=== PATIENT | female | born 1990 ===

== ENCOUNTER 2017-04-03 23:28 | Inpatient (IN) ==
[2017-04-03] MEDS ORDERED: LACTATED RINGERS 1,000 ML IV SCH (23:45)
[2017-04-03] MEDS ORDERED: ONDANSETRON 4 MG/2 ML VIAL IV PRN (23:53)
[2017-04-03] MEDS ORDERED: MEPERIDINE 50 MG/1 ML VIAL IV PRN (23:53)
[2017-04-03] MEDS ORDERED: LACTATED RINGERS 500 ML IV PRN (23:53)
[2017-04-04 00:33] LABS: Basophils % 0.2 % (0.0-0.8); Eosinophils # 0.2 10*3/uL (0.0-0.87); Eosinophils % 1.5 % (0.00-10.9); Hematocrit 29.4 VOL% (35.7-47.0); Hemoglobin 9.9 GM/DL (12.0-16.0); Immature Granulocytes % 0.9 %; Immature Granulocytes Absolute 0.11 #; Lymphocytes # 3.4 10*3/uL (1.4-4.0); Lymphocytes % 26.5 % (21.3-54.2); Mean Corpuscular HGB Conc 33.7 GM/DL (32-36); Mean Corpuscular Hemoglobin 31 PG (27-34); Mean Corpuscular Volume 92.2 FL (87-102); Mean Platelet Volume 9.8 FL (9.6-12.0); Monocytes % 7.6 % (1.7-12.7); Neutrophils # 8.1 10*3/uL (1.4-7.4); Neutrophils % 63.3 % (38.7-73.9); Platelet Count 431 T/CUMM (130-400); Red Blood Count 3.19 MC/CUMM (3.8-5.5); Red Cell Distribution Width 12.8 % (9.3-17.3); White Blood Count 12.9 T/CUMM (4-12)
[2017-04-04] MEDS ORDERED: AMPICILLIN INJ 2,000 MG in SODIUM CHLORIDE 0.9% 100 ML IV ONE (01:31)
[2017-04-04] MEDS ORDERED: SODIUM CHLORIDE 0.9% 100 ML IV ONE (01:33)
[2017-04-04] MEDS ORDERED: AMPICILLIN 2,000 MG VIAL ONE (01:33)
[2017-04-04] MEDS ORDERED: CITRIC ACID/SODIUM CITRATE 30 ML UDCUP PO ONE (02:49)
[2017-04-04] MEDS ORDERED: ePHEDrine 50 MG/ML AMP IV PRN (02:49)
[2017-04-04] MEDS ORDERED: FAMOTIDINE 20 MG/2 ML VIAL IV ONE (02:49)
[2017-04-04] MEDS ORDERED: fentaNYL 2 MCG/ROPIV 0.2% EPID 150 ML EPIDURAL SCH (02:50)
[2017-04-04] MEDS ORDERED: METHYLERGONOVINE 0.2 MG/1 ML AMP ONE (03:20)
[2017-04-04] MEDS ORDERED: OXYTOCIN/LR 20 UNIT/1,000 ML BAG IV ONE ×2 (03:20→04:32)
[2017-04-04] MEDS ORDERED: miSOPROStol 200 MCG TABLET ONE (03:20)
[2017-04-04] MEDS ORDERED: LIDOCAINE 1% 50 ML VIAL ONE (03:20)
[2017-04-04] MEDS ORDERED: BUTORPHANOL 1 MG/ML VIAL ONE (03:35)
[2017-04-04 03:47] LABS: Cord Arterial Blood HCO3 25.6 MMOL/L
[2017-04-04 03:49] LABS: Cord Venous Blood PCO2 32.2 MMHG; Cord Venous Blood PO2 23.2
--- NOTE | 2017-04-04 04:20 | OB/GYN History & Physical ---
History of Present Illness Chief complaint: Active labor, spontaneous rupture membranes History of present illness: Ms. Benavidez is a 26 year old female 3 para 2 EDC is 04/21/2017, estimated gestational age is 37 weeks and 3 days presenting with spontaneous rupture membranes and in active labor. Cervix on admission was 2 cm 50% and -4 station. Patient progressed and subsequently attempt to obtain an epidural anesthetic was unsuccessful. heart tones are category 1, contractions were every 2-3 minutes apart. Home Medications Medication Instructions Recorded Confirmed Type Multivitamin () [ 1 tablet PO DAILY 04/04/17 04/04/17 History Vitamin] Allergies Allergy/AdvReac Type Severity Reaction Status Date / Time No Known Allergies Allergy Verified 04/03/17 23:52 Medical,Surgical,& Family Hx - Medical History Hematology: History of: Anemia Other: History of: Miscellaneous Medical Problems (H/O Chlamydia, trichomonas) - Family History Family History: Reports;: Family Cancer (MGM-THYROID), Family Diabetes (mgm) Denies;: Family Anesthesia Reaction, Family Heart Disease, Family Hematology , Family Hypertension, Family Stroke - Social History Smoking Status: Never smoker Frequency of Alcohol Use: None Type of Drug Use: None 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 Vitals: Vital Signs Temp Pulse Resp BP Pulse Ox 04/04/17 00:00 98.1 F 107 H 20 115/69 100 General appearance: mild distress - Antepartum / Post Antepartum Exam Cervix -Dilatation: On admission 2, 50% ,-4 station, spontaneous rupture membranes - Head Head exam: Present: normal inspection - Eye Eye exam: Present: EOMI Pupils: Present: PRINCE - ENT ENT exam: Present: normal exam - Neck Neck exam: Present: normal inspection - Respiratory Respiratory exam: Present: clear to auscultation bilaterally - Breast Breasts: as per HPI Menstruation: as per HPI - Cardiovascular Cardiovascular exam: Present: regular rate and rhythm - GI/Abdominal GI/Abdominal exam: Present: normal bowel sounds - Extremities Exam Extremities exam: Present: normal inspection - Back Exam Back exam: Present: normal inspection - Neurological Exam Neurological exam: Present: alert, oriented X3 - Psychiatric Psychiatric exam: Present: normal affect - Skin Skin exam: Present: normal color Assessment and Plan (1) Active labor Status: Acute Assessment and plan: 37+ weeks gestation presents in active labor with spontaneous rupture membranes , anticipate Current Visit: Yes Results - Labs CBC & BMP: 04/04/17 00:00
--- NOTE | 2017-04-04 04:25 | Event Note ---
Delivery note Stage I of labor Patient presented with ruptured membranes clear fluid Admission to the hospital is 2325, 2 cm dilated 50% -4 station Completely dilated at 3:15 AM heart tones are category 1 Patient received IV Demerol approximately at 2 AM Stage II Delivery at approximately 329 as I was walking to the door. Cord was doubly clamped nuchal cord 2 loose Cord blood and cord gas was obtained nursery was present at the time of delivery Apgars were 8 at 1 minute 9 at 5 minutes weight was 6 pounds and 8 hours Female Stage III Spontaneous delivery of placenta Estimated blood loss 300 cc No lacerations were noted 3 cord vessels were noted Mother stable Mother received an additional 50 mg IV of Demerol, and also IV Stadol 1 mg.
[2017-04-04] MEDS ORDERED: DIPH/TET/ACEL PERT BOOSTER VACCINE 0.5 ML VIAL IM ONE (04:32)
[2017-04-04] MEDS ORDERED: MEASLES/MUMPS/RUBELLA VACCINE 0.5 ML VIAL SUBCUT ONE (04:32)
[2017-04-04] MEDS ORDERED: ACETAMINOPHEN 325 MG TABLET PO PRN (04:32)
[2017-04-04] MEDS ORDERED: HYDROCORTISONE 2.5% RECTAL CREAM 30 GM TUBE TOP PRN (04:32)
[2017-04-04] MEDS ORDERED: RHO(D) IMMUNE GLOBULIN 300 MCG SYRINGE IM ONE (04:32)
[2017-04-04] MEDS ORDERED: LANOLIN 50% CREAM 0.3 OZ TUBE TOP PRN (04:32)
[2017-04-04] MEDS ORDERED: WITCH HAZEL PADS 100/JAR TOP PRN (04:32)
[2017-04-04] MEDS ORDERED: BISACODYL 10 MG SUPP RECTAL PRN (04:32)
[2017-04-04] MEDS ORDERED: ONDANSETRON 4 MG/2 ML VIAL IV PRN (04:32)
[2017-04-04] MEDS ORDERED: BENZOCAINE 20%/MENTHOL 0.5% SPRAY 56 GM CAN TOP PRN (04:32)
[2017-04-04] MEDS ORDERED: oxyCODONE/ACETAMINOPHEN 5-325 MG TABLET PO PRN (04:32)
[2017-04-04] MEDS ORDERED: AMPICILLIN INJ 1,000 MG in SODIUM CHLORIDE 0.9% 100 ML IV SCH (05:30)
--- NOTE | 2017-04-04 08:53 | Ultrasound Report ---
US OB limited Indication: presentation Comparison: None Technique: Multiple longitudinal and transverse sonographic images of the maternal abdomen/pelvis were obtained with transabdominal probe for limited OB evaluation. Findings: Single live intrauterine demonstrated. presentation cephalic. Placenta location fundal. BILL 8.9 cm. heart rate 141 bpm. IMPRESSION: As above. PROCEDURE INTERPRETED AT [facility] DEPARTMENT OF RADIOLOGY Final Report Signed by: Dr Zoltan Chen
[2017-04-04] MEDS: DOCUSATE SODIUM 100 MG CAPSULE PO SCH ×2 (10:15→21:20)
[2017-04-04] MEDS: IBUPROFEN 800 MG TABLET PO PRN ×3 (10:18→22:55)
--- NOTE | 2017-04-04 10:45 | OB/GYN Progress Note ---
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 - Constitutional Vitals: Vital Signs Temp Pulse Resp BP Pulse Ox 04/04/17 09:00 97.3 F L 74 20 105/53 96 04/04/17 08:00 98.2 F 75 18 111/69 100 04/04/17 04:00 97.9 F 87 16 113/57 04/04/17 00:00 98.1 F 107 H 20 115/69 100 General appearance: no acute distress - Antepartum / Post Post Exam Breast: bilateral: normal Abdomen obstetrics: Present: bowel sounds normal Vagina: Present: normal moisture, discharge Uterus exam: Present: enlarged Anus/Rectum: Present: normal perianal skin Antepartum Exam Breast: bilateral: normal Abdomen obstetrics: Present: bowel sounds normal Vagina: Present: normal moisture, discharge (Moderate lochia rubra) Uterus exam: Present: enlarged (Fundus firm and midline) Anus/Rectum: Present: normal perianal skin - Respiratory Respiratory exam: Present: clear to auscultation bilaterally - Cardiovascular Cardiovascular exam: Present: regular rate and rhythm - GI/Abdominal GI/Abdominal exam: Present: normal bowel sounds - Extremities Exam Extremities exam: Present: normal inspection - Neurological Exam Neurological exam: Present: alert, oriented X3 - Psychiatric Psychiatric exam: Present: normal affect, normal mood - Skin Skin exam: Present: normal color, warm Results - Labs CBC & BMP: 04/04/17 00:00
[2017-04-04] MEDS: oxyCODONE/ACETAMINOPHEN 5-325 MG TABLET PO PRN ×2 (17:24→21:22)
[2017-04-05] MEDS: oxyCODONE/ACETAMINOPHEN 5-325 MG TABLET PO PRN (02:33)
[2017-04-05 06:44] LABS: Basophils % 0.2 % (0.0-0.8); Eosinophils # 0.3 10*3/uL (0.0-0.87); Hematocrit 26.5 VOL% (35.7-47.0); Hemoglobin 8.8 GM/DL (12.0-16.0); Immature Granulocytes % 0.9 %; Immature Granulocytes Absolute 0.11 #; Lymphocytes # 4.2 10*3/uL (1.4-4.0); Lymphocytes % 32.7 % (21.3-54.2); Mean Corpuscular HGB Conc 33.2 GM/DL (32-36); Mean Corpuscular Hemoglobin 31 PG (27-34); Mean Platelet Volume 9.6 FL (9.6-12.0); Monocytes # 0.8 10*3/uL (0.11-0.8); Monocytes % 5.9 % (1.7-12.7); Neutrophils # 7.5 10*3/uL (1.4-7.4); Neutrophils % 58.3 % (38.7-73.9); Platelet Count 321 T/CUMM (130-400); Red Blood Count 2.82 MC/CUMM (3.8-5.5); Red Cell Distribution Width 12.8 % (9.3-17.3); White Blood Count 12.9 T/CUMM (4-12)
[2017-04-05] MEDS: DOCUSATE SODIUM 100 MG CAPSULE PO SCH (08:58)
[2017-04-05 11:48] VITALS: BP 94/55
--- NOTE | 2017-04-05 14:00 | Progress Note ---
Assessment and Plan (1) Active labor Status: Acute Assessment and plan: 37+ weeks gestation presents in active labor with spontaneous rupture membranes , anticipate Current Visit: Yes Family Medicine PN Sub Interval history: Status post vaginal Patient without any major complaints Uterus is firm and nontender Extremities well within normal limits and neurologic grossly intact Assessment and plan Possible discharge in a.m. Exam (Progress Note) - Constitutional Vitals: Period Temp Pulse Resp BP Sys/Ferrara Pulse Ox Last 24 Hr 97.1 F-97.5 F 63-81 18-20 94-104/55-67 96-98 Results - Labs CBC & BMP: 04/05/17 06:33 Quality Measures - VTE Contraindication to Pharmacological VTE Prophylaxis: Clinical assessment deems Pt at low risk, no prophalaxis needed Specialty Discharge - Follow Up or Referrals Follow up with: Janice Cortes MD [Primary Care Provider] - 05/23/17 2:00 pm
--- NOTE | 2017-04-05 14:04 | Discharge Summary ---
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 Diagnosis - Discharge Diagnosis (1) Active labor Status: Acute Specialty Discharge - Follow Up or Referrals Follow up with: Janice Cortes MD [Primary Care Provider] - 05/23/17 2:00 pm Discharge Plan - Discharge Data Condition at Discharge: Stable Discharge Diet: advance to your usual diet Activity: resume usual activities as tolerated Hygiene: no restrictions Weight Bearing at Discharge: full weight bearing Driving: no restrictions Contact your physician if you experience:: fever over 101, Bleeding - Discharge Medications New Ibuprofen Tab [Motrin Tab] 800 mg PO Q6H PRN #30 tablet PRN Reason: Pain Moderate (4-7) oxyCODONE/ACETAMINOPHEN 5-325 [Percocet 5-325] 1 tablet PO Q6H PRN #14 tablet PRN Reason: Pain Severe (8-10) No Action Multivitamin () [ Vitamin] 1 tablet PO DAILY - Follow Up or Referral Follow Up: Janice Cortes MD [Primary Care Provider] - 05/23/17 2:00 pm - Forms/Instructions Instructions: Perineal Care (DC), Vaginal Delivery (DC), Bleeding (DC) Exam - Constitutional Vitals: Period Temp Pulse Resp BP Sys/Ferrara Pulse Ox Last 24 Hr 97.1 F-97.5 F 63-81 18-20 94-104/55-67 96-98 Discharge Results Procedures and tests throughout hospitalization: Pending Orders 04/03/17 23:53 Urinalysis Routine Labs on day of discharge: Labs from last 24 hours 04/05/17 06:33 WBC 12.9 H RBC 2.82 L Hgb 8.8 L Hct 26.5 L MCV 94.0 MCH 31 MCHC 33.2 RDW 12.8 Plt Count 321 D MPV 9.6 Neut % (Auto) 58.3 Lymph % (Auto) 32.7 Otero % (Auto) 5.9 Eos % (Auto) 2.0 Baso % (Auto) 0.2 Neut # (Auto) 7.5 H Lymph # (Auto) 4.2 H Otero # (Auto) 0.8 Eos # (Auto) 0.3 Baso # (Auto) 0.0 Immature Gran % 0.9 Nucleated RBC % 0.0 Immature Gran # 0.11 Nucleated RBCs # 0.00 DS: Provider Date of admission: 04/03/17 23:53 Primary care physician: Janice Cortes MD Attending physician on admission: Janice Cortes MD Consults: 04/03/17 23:53 Consult to Anesthesiology [CONS] Routine Consulting Provider: Reason for Anesthesiology: Epidural Consult Comment: Epidural for pain managment 04/04/17 04:32 Consult to Stock Associate [CONS] Routine Consult Stock Associate: Breast Feeding Discharging clinician: Janice Cortes MD
[2017-04-05] MEDS: IBUPROFEN 800 MG TABLET PO PRN (14:15)
== END 2017-04-05 17:15 | disposition home or self-care (01) | DRG 775 ==
LOC: N.LDOUT 23:28 → N.LD 23:30 → N.OB 04-04 09:03
PROVIDERS: ADMIT Obstetrics & Gynecology; ATTEND Obstetrics & Gynecology